=== PATIENT | female | born 2000 | race Caucasian/White ===

== ENCOUNTER 2022-02-08 13:37 | Emergency (ER) | payer OTHER ==
[~2022-02-08] VITALS: Ht 154.9 cm; Wt 78.9 kg
== END 2022-02-08 15:26 | disposition home or self-care (01) ==
LOC: ER 13:37
DX: U07.1 COVID-19 (principal); Z91.018 Allergy to other foods

== ENCOUNTER 2023-06-23 03:30 | Outpatient (CLI) | payer OTHER | END 2023-06-23 03:40 | disposition home or self-care (01) | LOC: PPH VACUNA 03:30 | PROVIDERS: ATTEND Emergency Medicine Pediatric Emergency Medicine | DX: Z23 Encounter for immunization (principal) | CPT/HCPCS: 90686; G0008 ==

== ENCOUNTER → 2024-06-15 06:32 | Outpatient (CLI) | payer OTHER ==
[2024-06-15 07:24] LABS: HEMATOCRIT 34.1 % (36.0-45.00); HEMOGLOBIN 11.7 g/dL (12.0-15.00); MEAN CORPUSCULAR HEMOGLOBIN 29.9 pg (27.00-32.0); MEAN CORPUSCULAR HGB CONC 34.3 g/dl (32.0-36.0); PLATELET COUNT 239 K/uL (150-450); RED BLOOD COUNT 3.92 M/uL (4.00-6.00); RED CELL DISTRIBUTION WIDTH 12.6 % (11.5-14.5)
[2024-06-15 07:27] LABS: PH,URINE 5.5 (5.0-8.0); URINE APPEARANCE Clear; URINE BILIRRUBIN Negative (NEGATIVE); URINE BLOOD Moderate; URINE COLOR Yellow; URINE GLUCOSE Negative (NEGATIVE); URINE KETONE Negative (NEGATIVE); URINE LEUKOCYTE Trace; URINE NITRATE Negative; URINE PROTEIN Negative (NEGATIVE); URINE UROBILINOGEN 0.2 E.U./dl
[2024-06-15 07:30] LABS: URINE BACTERIA 2204.8 uL (0.0-1933); URINE EPITHELIAL CELLS 102.7 uL (0.0-38.8); URINE RBC 50.8 uL (0.0-20.8)
[2024-06-15 08:54] LABS: ALBUMIN 3.8 gm/dL (3.4-5.0); BILIRUBIN TOTAL 0.66 mg/dL (0.3-1.2); CALCIUM 8.6 mg/dL (8.5-10.1); CHOL HDL RATIO 3.3 (0-5.0); CREATININE SERUM 0.58 mg/dL (0.55-1.02); FREE TRIODOTIRONINE 2.4 pg/ml (2.18-3.98); GFR 126.67; GLOBULINA 3.5 G/DL (2.4-3.5); POTASSIUM 4.02 mEq/L (3.5-5.1); T4 TOTAL 7.05 UG/DL (4.8-13.9); TOTAL PROTEIN 7.3 gm/dL (6.4-8.2); TSH 0.863 uIU/mL (0.358-3.74)
== END | disposition home or self-care (01) ==
LOC: LAB 06:32
PROVIDERS: ATTEND Specialist
DX: Z12.11 Encounter for screening for malignant neoplasm of colon (principal); D64.9 Anemia, unspecified; E03.8 Other specified hypothyroidism; N95.1 Menopausal and female climacteric states; I10 Essential (primary) hypertension; C51.9 Malignant neoplasm of vulva, unspecified; N30.00 Acute cystitis without hematuria; E83.51 Hypocalcemia; A64 Unspecified sexually transmitted disease; N39.0 Urinary tract infection, site not specified; R97.8 Other abnormal tumor markers; E55.9 Vitamin D deficiency, unspecified; A60.9 Anogenital herpesviral infection, unspecified

== ENCOUNTER 2024-06-29 07:30 | Outpatient (CLI) | payer OTHER | END 2024-06-29 08:00 | disposition home or self-care (01) | LOC: PPH VACUNA 07:30 | PROVIDERS: ATTEND Emergency Medicine Pediatric Emergency Medicine | DX: Z23 Encounter for immunization (principal) ==

== ENCOUNTER 2025-06-26 15:30 | Outpatient (CLI) | payer OTHER | END 2025-06-26 15:40 | disposition home or self-care (01) | LOC: PPH VACUNA 15:30 | PROVIDERS: ATTEND Emergency Medicine Pediatric Emergency Medicine | DX: Z23 Encounter for immunization (principal) ==